=== PATIENT | female | born 1950 | race Caucasian/White ===

== ENCOUNTER 2017-05-17 08:52 | Outpatient (CLI) | payer MEDICARE, OTHER | END 2017-05-17 08:53 | disposition home or self-care (01) | LOC: BICMAMMO 08:52 | PROVIDERS: ATTEND Family Medicine | DX: Z13.820 Encounter for screening for osteoporosis (principal); M81.0 Age-related osteoporosis without current pathological fracture | CPT/HCPCS: 77080 ==

== ENCOUNTER 2017-05-17 09:52 | Outpatient (CLI) | payer MEDICARE, OTHER | END 2017-05-17 09:53 | disposition home or self-care (01) | LOC: BICRAD 09:52 | PROVIDERS: ATTEND Family Medicine | DX: M54.5 Low back pain (principal); N95.9 Unspecified menopausal and perimenopausal disorder; M47.896 Other spondylosis, lumbar region; M43.16 Spondylolisthesis, lumbar region | CPT/HCPCS: 72100 ==

== ENCOUNTER 2017-09-26 11:55 | Outpatient (CLI) | payer MEDICARE, OTHER | END 2017-09-26 11:56 | disposition home or self-care (01) | LOC: BICMAMMO 11:55 | PROVIDERS: ATTEND Family Medicine | DX: Z12.31 Encounter for screening mammogram for malignant neoplasm of breast (principal); M47.895 Other spondylosis, thoracolumbar region; M47.896 Other spondylosis, lumbar region; M48.061 Spinal stenosis, lumbar region without neurogenic claudication; M43.16 Spondylolisthesis, lumbar region; R92.1 Mammographic calcification found on diagnostic imaging of breast; Z80.3 Family history of malignant neoplasm of breast | CPT/HCPCS: 72148; 77063; 77067 ==

== ENCOUNTER 2017-12-06 10:35 | Outpatient (CLI) | payer MEDICARE ==
[2017-12-06 13:06] LABS: Hemoglobin 14.5 g/dL (12.0-16.0); Mean Corpuscular HGB CONC 33.4 g/dL (32.0-36.0); Mean Corpuscular Hemoglobin 30.7 pg (27.0-31.0); Mean Corpuscular Volume 92.2 fL (78.0-98.0); Mean Platelet Volume 7.5 fL (7.4-10.4); Platelet Count 212 thou/uL (130-400); RBC Distribution Width 12.7 % (11.5-14.5); Red Blood Cell (RBC) Count 4.72 mill/uL (4.20-5.40); White Blood Cell (WBC) Count 4.7 thou/uL (4.8-10.8)
[2017-12-06 13:21] LABS: Anion Gap 17 mmol/L (10-20); BUN (Urea Nitrogen) 18 mg/dL (9.8-20.1); Calc. Creatinine Clearance 0 mL/min (70-130); Calcium 9.4 mg/dL (7.8-10.44); Carbon Dioxide 22 mmol/L (23-31); Chloride 104 mmol/L (98-107); Estimated GFR-MDRD 50; Glucose 105 mg/dL (80-115); Potassium 4.4 mmol/L (3.5-5.1); Sodium 139 mmol/L (136-145)
== END 2017-12-06 10:36 | disposition home or self-care (01) ==
LOC: LABBT 10:35
PROVIDERS: ATTEND Neurological Surgery
DX: Z01.818 Encounter for other preprocedural examination (principal); M43.16 Spondylolisthesis, lumbar region
CPT/HCPCS: 80048; 85027; 87081; 93005; 93010

== ENCOUNTER 2017-12-06 11:15 | Inpatient (IN) | payer MEDICARE ==
[2017-12-06 10:54] VITALS: BMI 24.5
[2017-12-18] MEDS ORDERED: Sodium Chloride 0.9% 10 ML ONE (09:01)
[2017-12-18] MEDS ORDERED: CEFAZOLIN/Water 2 GM/20 ML SYRINGE ONE (09:06)
[2017-12-18] MEDS ORDERED: Midazolam HCl 2 mg/2 ml Vial ONE (09:12)
[2017-12-18] MEDS ORDERED: Fentanyl 250 MCG/5 ML VIAL ONE (09:12)
[2017-12-18] MEDS ORDERED: Ondansetron HCl/PF 4 MG/2 ML Vial IVP PRN ×2 (10:34→13:56)
[2017-12-18] MEDS ORDERED: Promethazine HCl 25 MG/ML VIAL SLOW IVP PRN (10:34)
[2017-12-18] MEDS ORDERED: Promethazine HCl 25 MG/ML VIAL IM PRN ×2 (10:34→13:54)
[2017-12-18] MEDS ORDERED: HYDROmorphone 2 MG/ML VIAL SLOW IVP PRN (10:34)
--- NOTE | 2017-12-18 10:45 | OP ---
DATE OF PROCEDURE: 12/18/2017 SURGEON: Tevin Sweeney M.D. BURN OUT TENDER LACE: Heather Kenyon PROCEDURE: L4-5 decompressive laminectomy, posterolateral arthrodesis, pedicle screw instrumentation , demineralized bone matrix, and local morselized autograft L4-5. PROCEDURE IN DETAIL: The patient was brought into the operating room and intubated. She was rolled in prone position on gel-filled chest rolls. The previous incision was reopened and extended superio rly. The L5-S1 level seemed to be fused posteriorly and was quite irregular in shape. We identified the L4-5 level and it was loose as expected, but surprisingly the L3-4 level was also hypermobile. We performed a complete L4-5 decompression, decompressing the neural elements. The dura was extremel y attenuated and arachnoid was visible through the dura and bulging out, but no CSF was witnessed. G elfoam was placed over this at the end of the surgery. After complete decompression had been secured , we placed pedicle screws at right L4, right L5 using lateral fluoroscopic guidance. I attempted to place left-sided pedicle screws, but given the anatomy this seemed quite difficult and given the goo d screws on the right side, we aborted further efforts on the left side. The screws were connected b y rods, secured by nuts which were final tightened. The wound was extensively irrigated, immaculate hemostasis was secured. A combination of demineralized bone matrix and local morselized autograft wa s laid over the left laminar and posterolateral surfaces for the purpose of arthrodesis. Vancomycin powder was applied and the wound was closed in anatomic layers.
[2017-12-18] MEDS ORDERED: Fentanyl 100 MCG/2 ML VIAL ONE (11:18)
[2017-12-18] MEDS ORDERED: HYDROmorphone 2 MG/ML VIAL ONE (11:29)
[2017-12-18] MEDS ORDERED: Promethazine HCl 25 MG/ML VIAL ONE (11:41)
[2017-12-18] MEDS ORDERED: Mag-Al 1200 mg/1200 mg/30 ML UDCUP PO PRN (13:54)
[2017-12-18] MEDS ORDERED: diphenhydrAMINE 50 MG/ML VIAL IVP PRN (13:54)
[2017-12-18] MEDS ORDERED: traMADol HCl 50 MG TAB PO PRN ×2 (13:54)
[2017-12-18] MEDS ORDERED: Milk Of Magnesia 30 ML UDCUP PO PRN (13:54)
[2017-12-18] MEDS ORDERED: Promethazine 25 MG TAB PO PRN (13:54)
[2017-12-18] MEDS ORDERED: HYDROcodone/Acetaminophen 10/325 mg Tablet PO PRN (13:54)
[2017-12-18] MEDS ORDERED: tiZANidine HCl 4 MG TAB PO PRN (13:54)
[2017-12-18] MEDS ORDERED: diphenhydrAMINE 25 MG CAP PO PRN (13:54)
[2017-12-18] MEDS ORDERED: Promethazine HCl 12.5 MG SUPP PR PRN (13:54)
[2017-12-18] MEDS ORDERED: Morphine 4 MG/ML VIAL IV PRN (13:55)
[2017-12-18] MEDS ORDERED: traZODone HCl 50 MG TAB PO PRN (13:58)
[2017-12-18] MEDS ORDERED: IBANDRONATE 150 MG PO SCH (14:00)
[2017-12-18] MEDS ORDERED: Fluticasone Propionate Nasal Spray 16 gm Bottle NASAL PRN (14:01)
[2017-12-18] MEDS: Sodium Chloride 0.9% 1,000 ML IV SCH (14:20)
[2017-12-18] MEDS: CEFAZOLIN/Water 2 GM/20 ML SYRINGE SLOW IVP SCH (16:53)
[2017-12-18] MEDS: HYDROcodone/Acetaminophen 10/325 mg Tablet PO PRN (16:59)
[2017-12-18] MEDS: busPIRone HCl 5 MG TAB PO SCH (20:27)
[2017-12-18] MEDS ORDERED: Atorvastatin Calcium 40 MG TAB PO SCH (21:00)
[2017-12-19] MEDS: CEFAZOLIN/Water 2 GM/20 ML SYRINGE SLOW IVP SCH (00:36)
[2017-12-19] MEDS: Sodium Chloride 0.9% 1,000 ML IV SCH (03:25)
--- NOTE | 2017-12-19 07:05 | DIS ---
HOSPITAL COURSE: The patient is a 67-year-old female status post L4-L5 decompression and fusion. Po stoperatively, her pain was well controlled with p.o. medications, she was tolerating a regular diet, and she was voiding appropriately. She did have some slight drainage from the incision overnight, w hich required a dressing change. I am inspecting the wound this morning and it appears dry without a ny additional issues. The patient is sitting comfortably in the bed in no acute distress. Awake and alert. She has a dry incision, which is intact; 5/5 strength throughout. No focal neurologic deficits. We will plan to dismiss the patient to home later today. I have discussed home care precautions and plan to follow up with the patient in approximately 2 weeks with x-rays. Provided the patient with s cripts for hydrocodone and Zanaflex and Keflex. Please reach out to Neurosurgery for additional ques tions or concerns.
[2017-12-19] MEDS ORDERED: Spironolactone 25 MG TAB PO SCH (08:00)
[2017-12-19 08:38] VITALS: BP 118/70; TEMP 99.2
[2017-12-19] MEDS: busPIRone HCl 5 MG TAB PO SCH (08:41)
[2017-12-19] MEDS ORDERED: Multivit, Therapeutic 1 TAB PO SCH (09:00)
[2017-12-19] MEDS: HYDROcodone/Acetaminophen 10/325 mg Tablet PO PRN (10:06)
== END 2017-12-19 10:44 | disposition home or self-care (01) | DRG 460 ==
LOC: SURG A 12-18 06:46
PROVIDERS: ADMIT Neurological Surgery; ATTEND Neurological Surgery
PROC: 0SG0071 Fusion of Lumbar Vertebral Joint with Autologous Tissue Substitute, Posterior Approach, Posterior Column, Open Approach (ICD-10-PCS; principal; 2017-12-18)
PROC: 01NB0ZZ Release Lumbar Nerve, Open Approach (ICD-10-PCS; 2017-12-18)
DX: M54.16 Radiculopathy, lumbar region (principal); Z86.718 Personal history of other venous thrombosis and embolism; I10 Essential (primary) hypertension; E78.5 Hyperlipidemia, unspecified; F41.9 Anxiety disorder, unspecified
CPT/HCPCS: 76001; A4216; C1713; C1768; G8978-GP-CM; G8979-GP-CM; G8980-GP-CM; J1170; J2250; J2270; J2550; J3010; J3370; J3490

== ENCOUNTER 2017-12-28 09:45 | Outpatient (CLI) | payer MEDICARE | END 2017-12-28 09:46 | disposition home or self-care (01) | LOC: BICRAD 09:45 | PROVIDERS: ATTEND Physician Assistant | DX: M54.5 Low back pain (principal); M47.896 Other spondylosis, lumbar region; M43.16 Spondylolisthesis, lumbar region; Z98.1 Arthrodesis status | CPT/HCPCS: 72100 ==

== ENCOUNTER 2018-02-20 13:32 | Outpatient (CLI) | payer MEDICARE ==
--- NOTE | 2018-02-20 15:06 | RAD ---
LUMBAR SPINE 2 VIEWS: HISTORY: A 67-year-old female with followup low back surgery, M51.36. FINDINGS: Status post laminectomy at L4 and L5 with right-sided pedicle screws involving L4 and L5 with mild ov erall stable-appearing anterolisthesis of L4 on L5 with disk space narrowing. There is also narrowin g at L3-L4. There is some generalized facet arthrosis. Levoscoliosis. IVC filter overlying the lum bar spine. IMPRESSION: Right-sided pedicle screws at L4-L5 with associated laminectomy and stable anterolisthesis of L4 on L 5. Levoscoliosis. Inferior vena cava filter overlying the spine. POS: [facility]
== END 2018-02-20 13:33 | disposition home or self-care (01) ==
LOC: TBSIIMAG 13:32
PROVIDERS: ATTEND Neurological Surgery
DX: M51.36 Other intervertebral disc degeneration, lumbar region (principal); M41.9 Scoliosis, unspecified; M43.16 Spondylolisthesis, lumbar region; Z98.890 Other specified postprocedural states
CPT/HCPCS: 72100

== ENCOUNTER 2018-05-04 11:20 | Outpatient (CLI) | payer MEDICARE ==
--- NOTE | 2018-05-04 12:32 | RAD ---
TWO VIEWS LEFT HIP: Comparison: None. History: Left hip pain. FINDINGS: Two views of the left hip shows no evidence of acute fracture or dislocation. No degenerative changes are seen. IMPRESSION: Unremarkable exam. POS: [facility]
--- NOTE | 2018-05-04 12:33 | RAD ---
THREE VIEWS RIGHT SHOULDER: Comparison: None. History: Right shoulder pain. FINDINGS: Three views of the right shoulder shows no evidence of acute fracture or dislocation. The visualized right thorax is unremarkable. No significant degenerative changes are present. IMPRESSION: Unremarkable exam. POS: [facility]
== END 2018-05-04 11:21 | disposition home or self-care (01) ==
LOC: BICRAD 11:20
PROVIDERS: ATTEND Family Medicine
DX: M25.511 Pain in right shoulder (principal); M25.552 Pain in left hip

== ENCOUNTER 2018-05-22 12:46 | Outpatient (CLI) | payer MEDICARE ==
--- NOTE | 2018-05-22 14:38 | RAD ---
LUMBAR SPINE SERIES TWO VIEWS: History: Follow up surgery. Comparison: 02-20-18 FINDINGS: The bones appear demineralized. Vertebral bodies are normal in height. There are right unilateral ped icle screws again noted at L4-5 with spondylolisthesis, stable. Disc narrowing at L5-S1 and L3-4 are again seen. An IVC filter is present. IMPRESSION: Stable exam. POS: [facility]
== END 2018-05-22 12:47 | disposition home or self-care (01) ==
LOC: TBSIIMAG 12:46
PROVIDERS: ATTEND Neurological Surgery
DX: M43.16 Spondylolisthesis, lumbar region (principal)
CPT/HCPCS: 72100

== ENCOUNTER 2018-07-06 10:06 | Outpatient (CLI) | payer MEDICARE ==
[2018-07-06] MEDS ORDERED: Gadobenate Dimeglumine 529 MG/1 ML (20ML VIAL) ONE (12:48)
--- NOTE | 2018-07-06 12:57 | MRI ---
RIGHT SHOULDER MRI WITHOUT IV CONTRAST: HISTORY: M75.101, tear right rotator cuff with right shoulder pain and decreasing range of motion for 3 months . FINDINGS: Multiplanar, multisequence MRI examination of the right shoulder is performed. AC joint arthrosis ch anges are noted with some fairly marked downsloping of the lateral acromion. There is an irregular c omplete retracted tear of the supraspinatus tendon with retraction back to a level between the taty l dome and glenoid. There is also incomplete tear of the infraspinatus tendon with some considerable delamination. There appears to be a split-type appearance to the biceps tendon as it exits the occi pital groove with some associated tendinopathy, evidence for a split-type tear. Considerable thicken ing and increased signal of the subscapularis tendon, evidence for interstitial tearing and tendinopa thy. Moderate to severe muscle volume loss of the supraspinatus and infraspinatus muscles. Poorly d efined abnormal-appearing superior labrum, evidence for a degenerative-type SLAP tear. IMPRESSION: Extensive rotator cuff tears as above. Moderate to severe muscle volume loss of the supraspinatus an d infraspinatus muscles. Poorly defined degenerated-appearing superior labrum anterior to posterior tear. POS: [facility]
--- NOTE | 2018-07-06 13:59 | MRI ---
MRI LUMBAR SPINE WITH AND WITHOUT CONTRAST: DATE: 07/06/18 HISTORY: 67-year-old female with M54.16 lumbar radiculopathy. Low back pain radiating to left lower extremity. COMPARISON: 12/28/17. TECHNIQUE: Multiple sequences obtained in axial and sagittal planes, pre and post IV injection of gadolinium-bas ed contrast agent: 12 mL MultiHance. FINDINGS: There is a complex, multilobulated and multiseptated T2 hyperintense and T1 hypointense mass in the l iver, close to the gallbladder fossa. This was present on previous MRI of 12/28/17. Uncertain whether or not there has been growth. The very irregular margins would be an unusual feature for a hepatic cyst. This is incompletely evaluated. Uncertain whether or not there are small areas of mildly enhanc ing tissues (vs. artifact). Vertebral body heights are maintained. There is a levoscoliosis with apex of curvature at approximate ly L3. Moderate to severe disc space narrowing at L4-5. High grade disc space narrowing at the right, concave side of the curvature at L3-4. L5-S1 disc space is slightly narrow, due to slight hypoplasia . No acquired severe disc space narrowing at any other level. There are diffuse disc bulges or disc-o steophytic bar complexes, indenting the ventral aspect of the thecal sac at every level except L5-S1. Mild bone marrow edema at the left pedicle and left posterior elements of L4. No major bone marrow s ignal abnormality elsewhere. T11-12: No high grade central stenosis or high grade neural foraminal stenosis. T12-L1: No high grade central stenosis or high grade neural foraminal stenosis. L1-2: Conus medullaris terminates at this level. No central or high grade neural foraminal stenosis. Slight degenerative retrolisthesis of L1 on L2. No significant interval change. L2-3: No central stenosis or high grade neural foraminal stenosis. L3-4: There is a right L4 pedicle screw. Moderate ligamentum flavum thickening. Severe bilateral fac et DJD with bilateral facet joint effusions. Moderate to severe bilateral neural foraminal stenosis h as probably not significantly changed. Degenerative retrolisthesis of L3 on L4 is similar to the prev ious MRI. The diffuse disc bulge is similar. Mild to moderate degree of central spinal canal stenosis . Probably no major interval change overall. L4-5: Right L5 pedicle screw traverses the right lateral recess of the spinal canal, medial to the r ight pedicle. Other than the right lateral recess, no significant central spinal canal stenosis. Grad e I anterolisthesis of L4 on L5 is unchanged. Diffuse disc bulge. Mild to moderate right neural edda inal stenosis. Moderate left neural foraminal stenosis. Severe bilateral facet DJD. Previously, there was high grade central spinal canal stenosis at this level, but that has been relieved by an apparen tly new midline laminectomy. The remaining nerve roots within the thecal sac are asymmetrically perip herally displaced on the right and left, consistent with chronic arachnoiditis. L5-S1: Spinal canal and thecal sac caliber are generous. The previously demonstrated right-sided int rathecal mass is no longer present. It may have been a hematoma. The sacral nerve roots within the th ecal sac are severely peripherally displaced consistent with chronic arachnoiditis. Posterior element bone graft fusion with successful ankylosis across midline. No central stenosis and no neural forami nal stenosis. IMPRESSION: 1. Complex cystic mass in the liver. Recommend further evaluation with multiphase CT of abdomen with and without contrast, liver mass protocol. 2. There has been interval relief of the previously demonstrated high grade central spinal canal clary nosis at L4-5 by a new midline laminectomy. 3. Unilateral right pedicle screws at L4 and L5. The right L5 pedicle screw traverses the right late ral recess of the spinal canal, medial to the pedicle. 4. Evidence for chronic arachnoiditis at the lower lumbosacral spine. 5. Mild to moderate central spinal canal stenosis at L3-4. 6. No severe central spinal canal stenosis at any level. JULIET R POS: [facility]
--- NOTE | 2018-07-06 14:09 | RAD ---
LUMBAR SPINE THREE VIEWS: HISTORY: Radiculopathy, lumbar region. COMPARISON: 05/22/2018 FINDINGS: Postop changes of right-sided posterior spinal fusion with pedicle screws at the L4-L5 level are agai n seen in good position and alignment. Grade 1 anterolisthesis of L4 over L5 is unchanged. No compr ession fracture is identified. Metallic hardware is intact. An IVC filter is again seen. IMPRESSION: Stable examination. POS: [facility]
== END 2018-07-06 10:07 | disposition home or self-care (01) ==
LOC: BICMRI 10:06
PROVIDERS: ATTEND Orthopaedic Surgery
DX: M54.16 Radiculopathy, lumbar region (principal); M75.101 Unspecified rotator cuff tear or rupture of right shoulder, not specified as traumatic; R16.0 Hepatomegaly, not elsewhere classified; M48.061 Spinal stenosis, lumbar region without neurogenic claudication; G03.1 Chronic meningitis; Z98.890 Other specified postprocedural states
CPT/HCPCS: 72100; 72158; 82565; A9577

== ENCOUNTER 2018-08-01 10:38 | Outpatient (CLI) | payer MEDICARE ==
--- NOTE | 2018-08-01 11:39 | CT ---
EXAM: CT Abdomen W WO Con PROVIDED CLINICAL HISTORY: Liver mass COMPARISON: MRI 07/06/2018 FINDINGS: The visualized lung bases are free of significant opacity. Multiple hepatic cysts are seen. The hepatic cyst in the right hepatic lobe near the gallbladder jennifer a demonstrates somewhat scalloped margins but appears otherwise normal. This correlates to the MR harsha paniagua. No evidence for a solid mass or concerning liver lesion. The solid abdominal organs demonstrate an otherwise unremarkable CT appearance. Changes of prior chol ecystectomy are seen. IVC filter is noted. No bowel dilatation, inflammatory fat stranding, free fluid or lymph node enlargement apparent. The osseous structures demonstrate no concerning lytic or blastic lesions. Postoperative changes are seen involving the lower lumbar spine. IMPRESSION: Hepatic cysts are seen, one of which corresponds to the MRI finding. No concerning lesions are eviden t.
== END 2018-08-01 10:39 | disposition home or self-care (01) ==
LOC: BICCT 10:38
PROVIDERS: ATTEND Family Medicine
DX: K76.89 Other specified diseases of liver (principal)
CPT/HCPCS: 74170; 82565

== ENCOUNTER 2019-01-10 15:13 | Outpatient (CLI) | payer MEDICARE ==
--- NOTE | 2019-01-10 15:35 | RAD ---
LUMBAR SPINE SERIES TWO VIEWS: 01/10/19 HISTORY: Back pain and radiculopathy. COMPARISON: 07/06/18 study. There is scoliotic change, convexed to the left. An IVC filter is again noted. Right unilateral pedic le screws at L. Right unilateral pedicle screws at L5-S1 are seen. Spondylolisthesis is again noted a nd stable. IMPRESSION: Stable exam. POS: [facility]
== END 2019-01-10 15:14 | disposition home or self-care (01) ==
LOC: TBSIIMAG 15:13
PROVIDERS: ATTEND Neurological Surgery
DX: M54.16 Radiculopathy, lumbar region (principal)
CPT/HCPCS: 72100

== ENCOUNTER 2019-01-30 07:05 | Day surgery (SDC) | payer MEDICARE ==
[2019-01-29 13:21] VITALS: BMI 25.0
[~2019-01-30 07:05] MED LIST: FLU VACC TS2019-20(65YR UP)/PF 180 MCG/0.5 ML SYRINGE IM ONE
--- NOTE | 2019-01-30 08:56 | RAD ---
Myelogram of Lumbar spine CLINICAL HISTORY: Pain, Lumbar radiculopathy PROCEDURE: Informed consent was obtained. [employer] imaging was performed. Patient was placed in a prone position and the skin of the low back was prepped and draped in a standard sterile fashion. Topical anesthesia was achieved with buffered 1% lidocaine. 22-gauge spinal needle was then advanced uneventf ully into the thecal sac from a posterior para midline approach at the left tL3-4level. 9 cc of radiopaque contrast was instilled under low pressure into the thecal sac, upon return of clear colorl ess CSF the needle hub. Imaging was stored for documentation. Needle was removed. Patient tolerated the procedure well, without complication evident. Patient was then transferred to CT to undergo subsequent CT myelogram imaging. Reference separate joselyn cruz(s) for additional details. FINDINGS: Intraoperative imaging reveals a needle overlying the lumbar spinal canal, with subsequent instillation of radiopaque contrast within the thecal sac. Fluoroscopy data: 0.1minutes, 11mcg/sq m IMPRESSION: Technically successful myelogram, as above.
[2019-01-30] MEDS ORDERED: Iopamidol-M 200 41% 20 ML VIAL ONE (10:16)
--- NOTE | 2019-01-30 10:18 | CT ---
POST MYELOGRAM LUMBAR SPINE CT: HISTORY: Lumbar radiculopathy. Previous lumbar fusion. COMPARISON: None. CORRELATION: Abdomen CT of 08/01/2018. FINDINGS: Re-demonstration of hypodensities in the hepatic parenchyma, likely due to cysts. Symmetric attenuati on of the visualized solid organs. No retroperitoneal mass, lymphadenopathy or hematoma. Note is made of an IVC filter. The visualized alimentary canal is unremarkable. There is mild leftward curvature of the lumbar spine. There is diffuse bony demineralization. Lumbar spine vertebral body height is maintained. No fracture. Unilateral right-sided transpedicular screw at L4 and L5. No perihardware lucency. There are bilatera l pars defects at L4. Spondylolisthesis: 6.7 mm of anterolisthesis of L4 upon L5 3.3 mm of retrolisthesis of L1 upon L2 The conus medullaris terminates at the mid L1 level. Right L4 transpedicular screw is appropriately positioned. The right L5 transpedicular screw traverse s the central spinal canal and is noted in the right subarticular zone. This screw appears to be adjacent to the traversing right S1 nerve root. T10-T11: Vacuum disc phenomenon. No high grade central canal stenosis. Moderate to severe bilateral neural foraminal narrowing. T11-T12: Small left and right paracentral disc bulge. No significant central canal stenosis. Moderate bilateral neural foraminal narrowing. T12-L1: Vacuum disc phenomenon with mild loss of disc space height.. Broad-based disc bulge results i n mild central canal stenosis. Mild to moderate bilateral neural foraminal narrowing. L1-L2: Broad-based disc bulge with a small right paracentral component. Mild central canal stenosis. Moderate bilateral foraminal narrowing. L2-L3: Broad-based disc bulge, mild ligament flavum thickening and facet hypertrophy result in mild c entral canal stenosis. Mild to moderate right and mild left neural foraminal narrowing. L3-L4: Vacuum disc phenomenon. Broad-based disc bulge and posterior element hypertrophy result in sev ere central canal stenosis. There is asymmetric soft tissue density in the left subarticular zone. There is presumed mass effect and obscuration of the traversing left L4 nerve root. Mild to moderate right and moderate to severe left neural foraminal narrowing. L4-L5: Vacuum disc phenomenon. Broad-based disc bulge. Posterior laminectomy defect. Based on the axi al images, there does not appear to be high grade central canal stenosis. Mild to moderate bilateral neural foraminal narrowing. L5-S1: No significant central canal stenosis or significant neural foraminal narrowing. Posterior westbrook inectomy defect with bone graft material is identified. IMPRESSION: 1. Unilateral right sided transpedicular screw at L4 and L5. The right L5 transpedicular screw enters the central spinal canal and is noted in the right subareolar zone. The screw is adjacent to the traversing right S1 nerve root. 2. Severe central canal stenosis at L3-L4. Limited and incomplete evaluation. Correlation made with a n MRI from 07/06/2018 suggests progression of central spinal canal stenosis. Consider repeat MRI. 3. Varying degrees of neural foraminal narrowing and central canal stenosis as detailed above. 4. Spondylolisthesis as detailed above. Transcribed Date/Time: 01/30/2019 11:01 AM
== END 2019-01-30 09:40 | disposition home or self-care (01) ==
LOC: RAD 07:05
PROVIDERS: ATTEND Neurological Surgery
PROC: B01B1ZZ Fluoroscopy of Spinal Cord using Low Osmolar Contrast (ICD-10-PCS; principal; 2019-01-30)
DX: M54.16 Radiculopathy, lumbar region (principal); M48.061 Spinal stenosis, lumbar region without neurogenic claudication; I10 Essential (primary) hypertension; E78.5 Hyperlipidemia, unspecified; E11.43 Type 2 diabetes mellitus with diabetic autonomic (poly)neuropathy; K31.84 Gastroparesis; Z79.01 Long term (current) use of anticoagulants; Z79.83 Long term (current) use of bisphosphonates; Z79.899 Other long term (current) drug therapy; Z88.5 Allergy status to narcotic agent; Z98.1 Arthrodesis status
CPT/HCPCS: 62304; 72132; Q9966

== ENCOUNTER 2019-03-06 05:39 | Inpatient (IN) | payer MEDICARE ==
[2019-03-05 12:40] VITALS: BMI 25.0
[2019-03-06] MEDS ORDERED: Sodium Chloride 0.9% 10 ML ONE (06:30)
[2019-03-06 06:44] LABS: #Eosinphils 0.1 thou/uL (0.0-0.7); #Lymphocytes 1.8 thou/uL (1.20-3.40); #Monocytes 0.3 thou/uL (0.11-0.59); #Neutrophils 2.2 thou/uL (1.40-6.50); %Basophils 0.3 % (0.0-1.0); %Eosinophils 1.6 % (0.0-10.0); %Lymphocytes 41.2 % (21.0-51.0); %Monocytes 6.6 % (0.0-10.0); %Neutrophils 50.4 % (42.0-75.0); Hemoglobin 14.1 g/dL (12.0-16.0); Mean Corpuscular HGB CONC 33.2 g/dL (32.0-36.0); Mean Corpuscular Volume 93.4 fL (78.0-98.0); Mean Platelet Volume 7.3 fL (7.4-10.4); Platelet Count 222 thou/uL (130-400); RBC Distribution Width 12.6 % (11.5-14.5); Red Blood Cell (RBC) Count 4.54 mill/uL (4.20-5.40); White Blood Cell (WBC) Count 4.4 thou/uL (4.8-10.8)
[2019-03-06 07:02] LABS: Anion Gap 11 mmol/L (10-20); BUN (Urea Nitrogen) 23 mg/dL (9.8-20.1); Calc. Creatinine Clearance 41 mL/min (70-130); Calcium 9.2 mg/dL (7.8-10.44); Carbon Dioxide 28 mmol/L (23-31); Chloride 105 mmol/L (98-107); Estimated GFR-MDRD 51; Glucose 99 mg/dL (80-115); Potassium 4.2 mmol/L (3.5-5.1); Sodium 140 mmol/L (136-145)
[2019-03-06] MEDS ORDERED: Fentanyl 250 MCG/5 ML VIAL ONE (07:02)
[2019-03-06 07:40] LABS: INR-International Normal Ratio 1.1; Prothrombin Time 13.9 SEC (12.0-14.7)
--- NOTE | 2019-03-06 09:31 | OP ---
DATE OF PROCEDURE: 03/06/2019 J[employer] FRONT END WEB DEVELOPER: Lashay Wu PA-C PROCEDURES PERFORMED: Re-exploration of spinal fusion, L4-L5; removal of hardware, L4-L5; L3-L4 laminectomy; posterolateral arthrodesis; pedicle screw instrumentation, L3 through L5; posterolateral arthrodesis, L3 through L5; and demineralized bone matrix and local morselized autograft. DESCRIPTION OF PROCEDURE: The patient was brought to the operating room and intubated. She was rolled in a prone position on gel-filled chest rolls. An incision was made exposing L3 through L5 and the level was confirmed by x-ray. We performed an L3-L4 laminectomy and identified a huge synovial cyst emanating from the left L3-L4 region. A complete decompression L3-L4 was achieved. The synovial cyst was removed. We next placed a pedicle screw at right L3 using lateral fluoroscopic guidance. We also replaced the right L5 pedicle screw for more lateral trajectory. As per her previous surgery, her anatomy was extremely difficult and screw placement was challenging. The ambrocio was then secured between the screws, connected by nuts, which were final tightened. The wound was then extensively irrigated. MAC hemostasis was secured. A combination of demineralized bone matrix and local morselized autograft were laid over the lamina and posterolateral surfaces for the purpose of arthrodesis. Vancomycin powder was applied and the wound was closed in anatomic layers. Job ID: [id number]
[2019-03-06] MEDS ORDERED: Fentanyl 100 MCG/2 ML VIAL ONE ×3 (09:33→10:12)
[2019-03-06] MEDS ORDERED: Promethazine HCl 25 MG/ML VIAL SLOW IVP PRN (09:34)
[2019-03-06] MEDS ORDERED: Promethazine HCl 25 MG/ML VIAL IM PRN (09:34)
[2019-03-06] MEDS ORDERED: Ondansetron HCl/PF 4 MG/2 ML Vial IVP PRN (09:34)
[2019-03-06] MEDS ORDERED: Milk Of Magnesia 30 ML UDCUP PO PRN (09:37)
[2019-03-06] MEDS ORDERED: Promethazine HCl 12.5 MG SUPP PR PRN (09:37)
[2019-03-06] MEDS ORDERED: Promethazine 25 MG TAB PO PRN (09:37)
[2019-03-06] MEDS ORDERED: Mag-Al 1200 mg/1200 mg/30 ML UDCUP PO PRN (09:37)
[2019-03-06] MEDS ORDERED: HYDROcodone/Acetaminophen 10/325 mg Tablet PO PRN (09:37)
[2019-03-06] MEDS ORDERED: diphenhydrAMINE 25 MG CAP PO PRN (09:37)
[2019-03-06] MEDS ORDERED: traMADol HCl 50 MG TAB PO PRN ×2 (09:37)
[2019-03-06] MEDS ORDERED: Morphine 4 MG/ML VIAL SLOW IVP PRN (09:37)
[2019-03-06] MEDS ORDERED: tiZANidine HCl 4 MG TAB PO PRN ×2 (09:37→16:29)
[2019-03-06] MEDS ORDERED: diphenhydrAMINE 50 MG/ML VIAL IVP PRN (09:37)
[2019-03-06] MEDS ORDERED: Morphine 2 MG/ML SYRINGE SLOW IVP PRN (09:39)
[2019-03-06] MEDS ORDERED: Ondansetron PF 4 MG/2 ML Vial SLOW IVP PRN (09:40)
[2019-03-06] MEDS ORDERED: Glycopyrrolate 0.2 MG/ML 5 ML SYRINGE ONE (10:19)
[2019-03-06] MEDS ORDERED: PHENYLEPHRINE-NS 100 MCG/ML 10 ML SYRINGE ONE (10:19)
[2019-03-06] MEDS ORDERED: Dexamethasone 20 MG/5 ML VIAL ONE (10:19)
[2019-03-06] MEDS ORDERED: Esmolol 100 MG/10 ML VIAL ONE (10:19)
[2019-03-06] MEDS ORDERED: Ondansetron PF 4 MG/2 ML Vial ONE (10:19)
[2019-03-06] MEDS ORDERED: Lidocaine 1% PF 5 ML VIAL ONE (10:19)
[2019-03-06] MEDS ORDERED: PROPOFOL 200 MG/20 ML VIAL ONE (10:19)
[2019-03-06] MEDS ORDERED: FLU VACC TS2019-20(65YR UP)/PF 180 MCG/0.5 ML SYRINGE IM ONE (14:00)
[2019-03-06] MEDS: CEFAZOLIN 2 GM in Premix Bag 1 BAG IVPB SCH ×2 (14:42→21:19)
[2019-03-06] MEDS: Sodium Chloride 0.9% 1,000 ML IV SCH ×2 (14:45→23:12)
[2019-03-06] MEDS ORDERED: Acetaminophen 325 MG TAB PO PRN (16:21)
[2019-03-06] MEDS ORDERED: Ondansetron ODT 4 MG TAB PO PRN (16:21)
[2019-03-06] MEDS ORDERED: Acetaminophen 650 MG Suppository PR PRN (16:21)
[2019-03-06] MEDS ORDERED: Dicyclomine 10 MG CAP PO PRN (16:30)
[2019-03-06] MEDS ORDERED: Fluticasone Propionate Nasal Spray 16 gm Bottle NASAL PRN (16:30)
[2019-03-06] MEDS ORDERED: Sodium Chloride 0.9% 1,000 ML IV SCH (16:30)
[2019-03-06] MEDS ORDERED: HumaLOG 300 UNITS/3 ML VIAL SC PRN ×2 (16:33)
[2019-03-06] MEDS ORDERED: Dextrose 5% in Water 1,000 ML IV PRN (16:33)
[2019-03-06] MEDS ORDERED: Dextrose 50% Abboject 50 ML SYRINGE SLOW IVP PRN (16:33)
--- NOTE | 2019-03-06 17:14 | CON ---
DATE OF CONSULTATION: 03/06/19 PRIMARY CARE PHYSICIAN: Dr. Sofia Soares. REASON FOR CONSULTATION: Medical management. REFERRING CLINICIAN: Lashay Wu PA-C CHIEF COMPLAINT: Nausea with vomiting. HISTORY OF PRESENT ILLNESS: Ms. Springer is a pleasant 68-year-old woman who is status post reexploration of spinal fusion, L4-L5 with removal of hardware and laminectomy of L3-L4. The patient had her surgery earlier today and states that her pain is well controlled. She reports having a mild headache. She has not had anything to eat yet and states she does feel hungry. She recently just had her pad changed and states after being moved about, she experienced some nausea and one episode of vomiting. She was given antiemetics and her symptoms resolved, but she continues with a mild 4/10 frontal headache. The patient feels this is due to not eating. Denies having any associated vision changes. She is otherwise feeling well without any major complaints. Denies any chest pain, palpitations, or shortness of breath. Denies any abdominal pain or cramping. No dizziness. REVIEW OF SYSTEMS: All other review of systems are negative. PAST MEDICAL HISTORY: 1. Diabetes mellitus type 2. 2. History of DVTs. 3. Hyperlipidemia. 4. Hypertension. 5. Gastroparesis. 6. Hiatal hernia. 7. Chronic back pain. PAST SURGICAL HISTORY: 1. Appendectomy. 2. Cholecystectomy. 3. L4-L5 decompression and fusion in November 2017. 4. Shoulder surgery. 5. Hysterectomy. 6. Hiatal hernia repair. 7. More recently spinal fusion L4-L5 with removal of hardware and laminectomy of L3-L4. SOCIAL HISTORY: The patient denies any tobacco use, alcohol consumption, or illicit drug use. FAMILY HISTORY: She reports a family history of DVTs. ALLERGIES: CODEINE. CURRENT MEDICATIONS: 1. Apixaban. 2. Lipitor. 3. Buspirone HCL. 4. Vitamin D3. 5. Diclofenac. 6. Bentyl. 7. Fluticasone. 8. Hydrocodone. 9. Boniva. 10. Lidoderm patch. 11. Multivitamins. 12. Protonix. 13. Spironolactone. 14. Zanaflex. PHYSICAL EXAMINATION: GENERAL: The patient appears thin, well developed, and in no acute distress. VITAL SIGNS: Temperature 97.6, pulse 67, respirations 16, O2 saturation 98% on 2 L per nasal cannula, blood pressure 144/71. HEENT: Normocephalic and atraumatic. Pupils are equal, round, and reactive to light. Sclerae without icterus. Oropharynx is clear. NECK: Supple. LUNGS: Clear to auscultation bilaterally without wheezes, rales, or rhonchi. CARDIAC: Regular rate and rhythm without audible murmurs, rubs, or gallops. ABDOMEN: Soft, nontender, nondistended. Normoactive bowel sounds present. EXTREMITIES: No cyanosis, clubbing, or edema. NEUROLOGIC: Alert and oriented x3. SKIN: Without rash or jaundice. LABORATORY DATA: White count 4.4, hemoglobin 14.1, hematocrit 42.4, platelets 222, neutrophils 50.4%. Sodium 140, potassium 4.2, chloride 105, BUN 23, creatinine 1.25, GFR 51, glucose 99, calcium 9.2. IMAGING DATA: None. IMPRESSION AND PLAN: Ms. Springer is a pleasant 68-year-old woman who has been referred for medical management of the following. 1. Hypertension. Reconcile home medications and monitor blood pressure. 2. Hyperlipidemia. Resume home medication. 3. Type 2 diabetes mellitus. Monitor glucose and initiate insulin sliding scale. 4. Acute kidney injury. The patient with a creatinine of 1.25 compared to 0.82 at baseline. We will give IV fluids and monitor renal function. 5. Gastrointestinal prophylaxis. We will resume her home dose of pantoprazole. 6. Deep venous thrombosis prophylaxis with mechanical SCDs. She is on anticoagulation at baseline due to history of DVTs, but this is being held given recent surgery. 7. Code status full. Surrogate decision maker is her daughter, Ninoska Dill. The patient's case discussed with attending who agrees with plan of care as described above. Thank you for this consultation. We will continue to follow the patient with you. Job ID: [id number] [facility]
[2019-03-06] MEDS: HYDROcodone/Acetaminophen 10/325 mg Tablet PO PRN (20:32)
[2019-03-06] MEDS: busPIRone HCl 10 MG TAB PO SCH (20:34)
[2019-03-06] MEDS: Atorvastatin Calcium 40 MG TAB PO SCH (20:34)
[2019-03-06] MEDS: Promethazine HCl 25 MG/ML VIAL IM PRN (21:15)
[2019-03-07] MEDS: CEFAZOLIN 2 GM in Premix Bag 1 BAG IVPB SCH (05:32)
[2019-03-07] MEDS: HYDROcodone/Acetaminophen 10/325 mg Tablet PO PRN ×4 (05:35→23:48)
[2019-03-07 06:20] LABS: #Lymphocytes 1.6 thou/uL (1.20-3.40); #Monocytes 0.3 thou/uL (0.11-0.59); #Neutrophils 6.8 thou/uL (1.40-6.50); %Basophils 0.6 % (0.0-1.0); %Eosinophils 0.2 % (0.0-10.0); %Lymphocytes 17.8 % (21.0-51.0); %Monocytes 3.7 % (0.0-10.0); %Neutrophils 77.7 % (42.0-75.0); Hemoglobin 12.7 g/dL (12.0-16.0); Mean Corpuscular HGB CONC 33.2 g/dL (32.0-36.0); Mean Corpuscular Hemoglobin 30.8 pg (27.0-31.0); Mean Corpuscular Volume 92.7 fL (78.0-98.0); Mean Platelet Volume 7.3 fL (7.4-10.4); Platelet Count 201 thou/uL (130-400); RBC Distribution Width 12.6 % (11.5-14.5); Red Blood Cell (RBC) Count 4.11 mill/uL (4.20-5.40); White Blood Cell (WBC) Count 8.7 thou/uL (4.8-10.8)
[2019-03-07 06:39] LABS: Anion Gap 12 mmol/L (10-20); BUN (Urea Nitrogen) 16 mg/dL (9.8-20.1); Calc. Creatinine Clearance 46 mL/min (70-130); Calcium 8.2 mg/dL (7.8-10.44); Carbon Dioxide 21 mmol/L (23-31); Chloride 108 mmol/L (98-107); Estimated GFR-MDRD 58; Glucose 136 mg/dL (80-115); Potassium 4.2 mmol/L (3.5-5.1); Sodium 137 mmol/L (136-145)
[2019-03-07] MEDS: Multivit, Therapeutic 1 TAB PO SCH (08:53)
[2019-03-07] MEDS: busPIRone HCl 10 MG TAB PO SCH ×2 (08:53→20:27)
[2019-03-07] MEDS: Spironolactone 25 MG TAB PO SCH (08:53)
[2019-03-07] MEDS: Cephalexin 250 MG CAP PO SCH ×4 (08:53→20:27)
--- NOTE | 2019-03-07 10:18 | PRG ---
DATE OF SERVICE: 03/07/2019 SUBJECTIVE: The patient is postoperative day #1, status post removal of hardware and extension of fusion to L3-L4. Following the surgery, the patient was transitioned to the Med/Surg floor, where her pain has been well controlled with p.o. medications, she is tolerating a regular diet, and she is voiding appropriately. The patient has had significant improvement in her left leg pain. She is ambulating short distances in her room back and forth to the bathroom. She did have some initial nausea and vomiting following the surgery, but this has since resolved and she is now tolerating her diet without any difficulties. She had 85 mL out from the JOSE MIGUEL overnight. OBJECTIVE: GENERAL: On exam, this morning, the patient is awake, alert, in no acute distress. EXTREMITIES: She has free active range of motion of all extremities. She is slightly weak in the left proximal leg 4+/5. Negative straight leg raise. No incisional issues. There is a small amount of dark red blood in the JOSE MIGUEL drain. The patient is doing very well postoperatively and prefers to go home with home health at some point rather than inpatient rehab. I will discuss with Case Management about arranging home health at discharge. We will remove her JOSE MIGUEL drain and discontinue her IV antibiotics today. We will continue to mobilize her slowly and have her work with PT. I anticipate possibly ready to go home tomorrow. Job ID: [id number]
[2019-03-07] MEDS: Sodium Chloride 0.9% 1,000 ML IV SCH (11:22)
--- NOTE | 2019-03-07 11:28 | PDOC.HOSPP ---
- Subjective Encounter Date: 03/07/19 Encounter Time: 08:00 Subjective: Pt seen for followup re; hypertension. Feels better, no complaints. - Objective Vital Signs & Weight: Vital Signs (12 hours) Temp Pulse Resp BP Pulse Ox 03/07/19 07:41 98.1 F 62 16 132/59 L 96 03/07/19 07:40 96 03/07/19 04:01 98.2 F 63 16 143/63 H 97 03/06/19 23:39 98.3 F 59 L 16 118/65 95 Weight Admit Weight 137 lb Weight 137 lb I&O: 03/06/19 03/07/19 03/08/19 06:59 06:59 06:59 Intake Total 1452 237 Output Total 315 20 Balance 1137 217 Result Diagrams: 03/07/19 06:08 03/07/19 06:08 Additional Labs: Accuchecks 03/07/19 03/06/19 03/06/19 05:31 20:17 17:05 POC Glucose 90 177 H 110 labs and MARs reviewed by hi Hospitalist ROS - Review of Systems Cardiovascular: denies: chest pain, palpitations, orthopnea, paroxysmal noc. dyspnea, edema, light headedness Gastrointestinal: denies: nausea, vomiting, abdominal pain, diarrhea, constipation, melena, hematochezia - Medication Medications: Active Medications Generic Name Dose Route Start Last Admin Trade Name Freq PRN Reason Stop Dose Admin Hydrocodone Bitart/Acetaminophen 1 tab 03/06/19 09:37 03/07/19 09:37 [place] 10/325 PO 1 tab Q4H PRN Administration PAIN (1-3) Atorvastatin Calcium 40 mg 03/06/19 21:00 03/06/19 20:34 Lipitor PO 40 mg HS ARTHUR Administration Buspirone HCl 15 mg 03/06/19 21:00 03/07/19 08:53 Buspar PO 15 mg BID ARTHUR Administration Cephalexin 500 mg 03/07/19 09:00 03/07/19 08:53 Keflex PO 500 mg QID ARTHUR Administration Cholecalciferol 5,000 units 03/07/19 09:00 03/07/19 08:53 Vitamin D3 PO 5,000 units DAILY ARTHUR Administration Sodium Chloride 1,000 mls @ 75 mls/hr 03/06/19 09:37 03/07/19 11:22 Normal Saline 0.9% IV Not Given .[id number] ARTHUR Morphine Sulfate 2 mg 03/06/19 09:39 03/06/19 16:06 Morphine SLOW IVP 2 mg Q1H PRN Administration .MODERATE BREAKTHROUGH PAIN Morphine Sulfate 4 mg 03/06/19 09:37 03/07/19 03:30 Morphine SLOW IVP 4 mg Q1H PRN Administration SEVERE BREAKTHROUGH PAIN Multivitamins 1 tab 03/07/19 09:00 03/07/19 08:53 Theragran PO 1 tab DAILY ARTHUR Administration Ondansetron HCl 4 mg 03/06/19 09:40 03/06/19 14:54 Zofran SLOW IVP 4 mg Q8H PRN Administration Nausea/Vomiting Pantoprazole Sodium 40 mg 03/06/19 21:00 03/07/19 08:53 Protonix PO 40 mg BID ARTHUR Administration Promethazine HCl 12.5 mg 03/06/19 09:37 03/06/19 21:15 Phenergan IM 12.5 mg Q4H PRN Administration Nausea/Vomiting Promethazine HCl 12.5 mg 03/06/19 09:37 03/06/19 19:02 Phenergan PO 12.5 mg Q4H PRN Administration Nausea/Vomiting Spironolactone 25 mg 03/07/19 09:00 03/07/19 08:53 Aldactone PO 25 mg DAILY ARTHUR Administration - Exam General Appearance: NAD Eye: anicteric sclera ENT: moist mucosa Neck: supple Heart: RRR Respiratory: CTAB Gastrointestinal: soft, non-tender Extremities: no clubbing Neurological: no weakness Psychiatric: normal affect, normal behavior Hosp A/P (1) HTN (hypertension) Code(s): I10 - ESSENTIAL (PRIMARY) HYPERTENSION Status: Chronic (2) Dyslipidemia Code(s): E78.5 - HYPERLIPIDEMIA, UNSPECIFIED Status: Chronic (3) GERD (gastroesophageal reflux disease) Code(s): K21.9 - GASTRO-ESOPHAGEAL REFLUX DISEASE WITHOUT ESOPHAGITIS Status: Chronic (4) Nausea and vomiting Code(s): R11.2 - NAUSEA WITH VOMITING, UNSPECIFIED Status: Resolved - Plan PT/OT, out of bed/ambulate nausea and vomiting have resolved. HTN controlled. Continue Lipitor. Continue Protonix.
[2019-03-07] MEDS: Promethazine HCl 25 MG/ML VIAL IM PRN (17:38)
[2019-03-07] MEDS: Atorvastatin Calcium 40 MG TAB PO SCH (20:28)
[2019-03-08] MEDS: Sodium Chloride 0.9% 1,000 ML IV SCH (03:02)
[2019-03-08] MEDS: HYDROcodone/Acetaminophen 10/325 mg Tablet PO PRN ×2 (05:18→13:17)
[2019-03-08] MEDS: busPIRone HCl 10 MG TAB PO SCH (08:22)
[2019-03-08] MEDS: Multivit, Therapeutic 1 TAB PO SCH (08:22)
[2019-03-08] MEDS: Cephalexin 250 MG CAP PO SCH ×2 (08:24→13:17)
[2019-03-08] MEDS: Spironolactone 25 MG TAB PO SCH (08:26)
[2019-03-08 11:25] VITALS: BP 126/66; TEMP 98.1
--- NOTE | 2019-03-09 03:54 | DIS ---
DATE OF ADMISSION: 03/06/2019 DATE OF DISCHARGE: 03/08/2019 Patient is a 68-year-old female, who underwent removal of hardware and decompression and extension of her lumbar fusion at L3-4 on 03/06/2019. Following surgery, she was transitioned to the Med/Surg floor. Her pain has been well-controlled with p.o. medications, she is tolerating a regular diet, and she is voiding appropriately. She has been ambulating easily in the hallways and worked with Physical Therapy and Occupational Therapy. Her JOSE MIGUEL output trended down and was removed on postoperative day 1. We will plan to dismiss the patient to home with home health assistance. We will plan to follow up with the patient in 2 weeks. I have discussed home care precautions. I have provided scripts for [place], Zanaflex, Keflex, and Zofran. Job ID: [id number]
--- NOTE | 2019-03-10 16:09 | EKG ---
Test Reason : PREOP Blood Pressure : / mmHG Vent. Rate : 060 BPM Atrial Rate : 060 BPM P-R Int : 152 ms QRS Dur : 086 ms QT Int : 428 ms P-R-T Axes : 053 023 015 degrees QTc Int : 428 ms Normal sinus rhythm Normal ECG When compared with ECG of 06-DEC-2017 11:26, No significant change was found Confirmed by DR. Pelon JEWELL ([id number]) on 03/10/2019 4:08:48 PM Referred By: ZULEIKA Confirmed By:DR. Pelon JEWELL
== END 2019-03-08 14:35 | disposition home health service (06) | DRG 460 ==
LOC: SURG A 05:39 → SURG B 11:19
PROVIDERS: ADMIT Neurological Surgery; ATTEND Neurological Surgery
PROC: 0SG1071 Fusion of 2 or more Lumbar Vertebral Joints with Autologous Tissue Substitute, Posterior Approach, Posterior Column, Open Approach (ICD-10-PCS; principal; 2019-03-06)
PROC: 0SP004Z Removal of Internal Fixation Device from Lumbar Vertebral Joint, Open Approach (ICD-10-PCS; 2019-03-06)
DX: M48.061 Spinal stenosis, lumbar region without neurogenic claudication (principal); N17.9 Acute kidney failure, unspecified; M54.16 Radiculopathy, lumbar region; E11.9 Type 2 diabetes mellitus without complications; E78.5 Hyperlipidemia, unspecified; I10 Essential (primary) hypertension; K21.9 Gastro-esophageal reflux disease without esophagitis; Z86.718 Personal history of other venous thrombosis and embolism; Z90.49 Acquired absence of other specified parts of digestive tract; Z90.710 Acquired absence of both cervix and uterus
CPT/HCPCS: 36415; 36416; 76000; 80048; 85025; 85610; 85730; 90471; 90662; 93005; 93010; C1713; C1768; G0008; J0690; J1100; J2001; J2270; J2405; J2550; J2704; J3010; J3370; J3490; Q0169

== ENCOUNTER 2019-03-28 08:31 | Outpatient (CLI) | payer MEDICARE ==
--- NOTE | 2019-03-28 08:56 | RAD ---
Lumbar spine 2 views HISTORY: Low back pain. Recent surgery. COMPARISON: 01/30/2019. FINDINGS: There are 5 lumbar type vertebrae with leftward convex rotatory scoliotic curvature. Cap Parts Cutter ior skin kiran now in place. Right pedicle screws and vertical ambrocio at the L3-4-5 levels. The right L4 pedicle screw continues to a pproach the superior endplate on the lateral view, similar in appearance to the most recent CT. On the frontal view, the right pedicle screw projects lateral to the expected location of the right p edicle. Please correlate with clinical and surgical findings. Metallic filter projects over the inferior vena cava. IMPRESSION: Degenerative and interval postoperative changes of the lumbar spine, with hardware placem ent as detailed above.
== END 2019-03-28 08:32 | disposition home or self-care (01) ==
LOC: TBSIIMAG 08:31
PROVIDERS: ATTEND Neurological Surgery
DX: M48.061 Spinal stenosis, lumbar region without neurogenic claudication (principal); M47.816 Spondylosis without myelopathy or radiculopathy, lumbar region; Z98.890 Other specified postprocedural states
CPT/HCPCS: 72100

== ENCOUNTER 2019-07-10 09:24 | Outpatient (CLI) | payer MEDICARE ==
--- NOTE | 2019-07-10 13:38 | MMO ---
Bilateral MAMMO Bilat Screen DDI+DEMETRIUS. CLINICAL HISTORY: Patient is 68 years old and is seen for screening. The patient has the following family history of breast cancer: mother, malignant (generic). The patient has no personal history of cancer. VIEWS: The views performed were: bilateral craniocaudal with tomosynthesis and bilateral mediolateral oblique with tomosynthesis. FILMS COMPARED: The present examination has been compared to prior imaging studies performed at [facility] on 07/03/2014, 08/02/2016 and 09/26/2017, and at [facility] on 06/18/2012. This study has been interpreted with the assistance of computer-aided detection. MAMMOGRAM FINDINGS: There are scattered fibroglandular densities. Benign calcifications are noted bilaterally. There are no suspicious masses, suspicious calcifications, or new areas of architectural distortion. IMPRESSION: THERE IS NO MAMMOGRAPHIC EVIDENCE OF MALIGNANCY. A ROUTINE FOLLOW-UP MAMMOGRAM IN 1 YEAR IS RECOMMENDED. THE RESULTS OF THIS EXAM WERE SENT TO THE PATIENT. ACR BI-RADS Category 2 - Benign finding MAMMOGRAPHY NOTE: 1. A negative mammogram report should not delay a biopsy if a dominant of clinically suspicious mass is present. 2. Approximately 10% to 15% of breast cancers are not detected by mammography. 3. Adenosis and dense breasts may obscure an underlying neoplasm. Reported by: PRINCE BOWDEN MD Electonically Signed: [id number]
== END 2019-07-10 09:25 | disposition home or self-care (01) ==
LOC: BICMAMMO 09:24
PROVIDERS: ATTEND Family Medicine
DX: Z12.31 Encounter for screening mammogram for malignant neoplasm of breast (principal); Z80.3 Family history of malignant neoplasm of breast
CPT/HCPCS: 77063; 77067

== ENCOUNTER 2019-08-19 12:11 | Outpatient (CLI) | payer MEDICARE ==
--- NOTE | 2019-08-19 12:57 | RAD ---
Lumbar spine 4 views HISTORY: Low back pain. Radiculopathy. FINDINGS: There is predominant sacralization of the fifth lumbar segment. Right pedicle screws and vertical rods at the L3-4-5 levels right L3 pedicle screw remains laterally and superiorly displaced to the expected location of the right pedicle. Cortication of the adjacent bone on the frontal view is now more well-defined. There is 0.6 cm lucency around the medial margin a nd 0.7 cm lucency along the inferior margin of the medical screw.. Vertebral body heights are maintained. Minimal degenerative spondylolisthesis at the L3-4 and L4-5 le vels is stable. No abnormal translational motion upon flexion or extension. Osteophytosis throughout the facets. Leftward convex curvature is apparent on the frontal view. Metallic filter in inferior vena cava. Metallic clips over the gallbladder fossa. IMPRESSION : Evidence of lateral/superior displacement of the right L3 pedicle screw with alexis-hardware lucency martins ggesting loosening.
--- NOTE | 2019-08-19 13:43 | RAD ---
LEFT HIP 2 VIEWS: HISTORY: Left hip pain, fall a month ago. FINDINGS/IMPRESSION: No acute fracture or dislocation is seen. Mild degenerative changes are present. POS: [facility]
== END 2019-08-19 12:12 | disposition home or self-care (01) ==
LOC: BICRAD 12:11
PROVIDERS: ATTEND Neurological Surgery
DX: M54.16 Radiculopathy, lumbar region (principal); M25.552 Pain in left hip; M16.12 Unilateral primary osteoarthritis, left hip; T84.226A Displacement of internal fixation device of vertebrae, initial encounter
CPT/HCPCS: 72110

== ENCOUNTER 2019-08-23 09:32 | Outpatient (CLI) | payer MEDICARE ==
--- NOTE | 2019-08-23 10:22 | RAD ---
EXAM: XR Lumbar Spine Min 4 View PROVIDED CLINICAL HISTORY: Lumbar radiculopathy. Patient was low back pain extends into right hip and down leg. COMPARISON: 08/19/2019 FINDINGS: Transitional vertebra seen at the lumbosacral junction with sacralization of the L5 vertebral body. L eft convex rotoscoliosis of the lumbar spine is again present. The right-sided pedicle screws transfixed by posterior ambrocio are seen at the L3, L4, and L5 vertebral bodies. The right L3 screw remai ns lateral to the L3 vertebral body and slightly superiorly located as well. There does appear to be scalloping of the adjacent vertebral body at the level of this screw with 2 separate rounded appea ring lucencies at the right lateral aspect of the vertebral bodies stable from prior exam. There is stable grade 1 anterolisthesis of L4 on L5. Vertebral body heights are within normal limits. No fracture or new level of subluxation is seen. Surgical clips overlie the right upper quadrant. IVC filter is again noted in place IMPRESSION: 1. Persistent lateral and superior displacement right L3 pedicle screw with perihardware lucency agai n seen similar to the prior exam. 2. Stable left convex rotoscoliosis lumbar spine. 3. Views of the lumbar spine are overall stable compared to prior study.
--- NOTE | 2019-08-23 11:22 | RAD ---
RIGHT HIP 2 VIEWS: HISTORY: Hip pain. FINDINGS: Minimal arthritic changes of the hip are noted. Some minimal spur formation without a significant de gree of joint space narrowing. The bones appear somewhat demineralized. IMPRESSION: Minimal arthritic changes of the hip. POS: [facility]
--- NOTE | 2019-08-23 13:26 | CT ---
CT OF THE LUMBAR SPINE WITHOUT CONTRAST: 08/23/19 INDICATION: 68-year-old female with history of fall two weeks ago with low back pain extending into the right hip and down the right leg. COMPARISON: CT lumbar myelogram dated 01/30/19. FINDINGS: The posterolateral fusion at L4-5 is stable appearing. The right posterior lateral fusion construct a t L4-5 on the prior examination has been revised. There has been interval placement of a new right pe dicular screw at the L3 vertebral level. There is prominent lucency surrounding the right L3 pedicula r screw. There is a vertically oriented fracture extending through the right pedicle, best seen on co marc image 33 of series 602. The right L5 pedicle screw has also been revised and projects anterolat eral to the right L5 cortex approximately 1.2 cm. There has been interval laminectomy at L3. There is vacuum disc phenomenon at L3-4 and L4-5. No acute fracture is evident. There is levoscoliosis of the lumbar spine. There is an IVC filter seen below the left renal vein. Cholecystectomy clips are seen within the right upper quadrant. There is mild scattered vascular calcifications. IMPRESSION: 1. Interval revision of the posterolateral spinal construct with replacement of the pedicular sc rew at L5. The L5 pedicular screw projects beyond the anterolateral cortex of the L5 vertebra approxi mately 1.2 cm. Newly placed right L3 pedicular screw has prominent lucency surrounding the screw susp icious for either loosening or infection. There is a suspected periprosthetic insufficiency fracture involving the right L3 pedicle. 2. No additional acute fracture or subluxation seen involving the lumbar spine. 3. Interval laminectomy at L3. POS: [facility]
== END 2019-08-23 09:33 | disposition home or self-care (01) ==
LOC: TBSIIMAG 09:32
PROVIDERS: ATTEND Neurological Surgery
DX: M54.16 Radiculopathy, lumbar region (principal); M25.551 Pain in right hip; M16.11 Unilateral primary osteoarthritis, right hip; M41.9 Scoliosis, unspecified; Z98.890 Other specified postprocedural states
CPT/HCPCS: 72110; 72131

== ENCOUNTER 2019-10-18 09:29 | Outpatient (CLI) | payer MEDICARE ==
--- NOTE | 2019-10-18 12:41 | ULT ---
HEPATIC ULTRASOUND WITH CHAVEZ SCALE AND COLOR FLOW AND SPECTRAL DOPPLER IMAGING: HISTORY: Liver cyst. GERD. Persistent colon polyps. FINDINGS: Multiple cysts are seen in the liver involving the left lobe measuring 2.7, 1.5, and 2.9 cm respectiv jesika. No abnormal biliary ductal dilatation is seen. The common duct measures 4 mm in diameter. The patient is post cholecystectomy with a cluster of cysts in the gallbladder fossa measuring 2.4 x 2.9 x 2.8 cm. The spleen and visualized portions of the pancreas are normal. The spleen measures 8.5 cm in length. No free fluid is seen. There is normal flow and spectral waveforms in the hepatic, portal, and splenic vasculature. IMPRESSION: 1. Cysts in the liver and the gallbladder fossa. 2. Status post cholecystectomy. POS: [facility]
== END 2019-10-18 09:30 | disposition home or self-care (01) ==
LOC: BICULT 09:29
PROVIDERS: ATTEND Internal Medicine Gastroenterology
DX: K76.89 Other specified diseases of liver (principal); K21.9 Gastro-esophageal reflux disease without esophagitis; K82.8 Other specified diseases of gallbladder; Z86.010 Personal history of colon polyps; Z90.49 Acquired absence of other specified parts of digestive tract
CPT/HCPCS: 36415; 76705; 80076

== ENCOUNTER 2020-01-08 09:30 | Inpatient (IN) | payer MEDICARE, OTHER ==
[2020-01-13] MEDS ORDERED: Fentanyl 100 MCG/2 ML VIAL ONE ×3 (09:57→12:04)
[2020-01-13] MEDS ORDERED: Atracurium 100 MG/10 ML VIAL ONE (09:58)
[2020-01-13] MEDS ORDERED: Midazolam HCl 2 mg/2 ml Vial ONE (10:02)
[2020-01-13] MEDS ORDERED: Ondansetron HCl/PF 4 MG/2 ML Vial IVP PRN (11:47)
--- NOTE | 2020-01-13 12:18 | OP ---
DATE OF PROCEDURE: 01/13/2020 CUSTOMER SUPPORT ASSISTANT: Lashay Wu PA-C PROCEDURE PERFORMED: Removal of hardware L3 through L5, expiration of spinal fusion L3 through L5, posterolateral arthrodesis, BMP cancellous bone chips L3 through L5. DESCRIPTION OF PROCEDURE: The patient was brought to the operating room and intubated. She was rolled in a prone position on gel-filled chest rolls. The previous incision was reopened and the prior hardware was identified and removed without difficulty. We explored the spinal fusion and could not find evidence that it was solid. We prepared the posterolateral surfaces for the purpose of arthrodesis and then placed a combination of BMP on Gelfoam with cancellous bone chips in the posterolateral recesses. The wound had previously been extensively irrigated and MAC hemostasis had been secured. Vancomycin powder was applied and the wound was then closed in anatomic layers. Job ID: [id number]
[2020-01-13] MEDS ORDERED: Ondansetron PF 4 MG/2 ML Vial ONE (12:30)
[2020-01-13] MEDS ORDERED: Ketorolac Tromethamine 30 MG/ML VIAL ONE (12:30)
[2020-01-13] MEDS ORDERED: PROPOFOL 200 MG/20 ML VIAL ONE (12:30)
[2020-01-13] MEDS ORDERED: Lidocaine 1% PF 5 ML VIAL ONE (12:30)
[2020-01-13] MEDS ORDERED: Dexamethasone 20 MG/5 ML VIAL ONE (12:30)
[2020-01-13] MEDS ORDERED: Glycopyrrolate 0.2 MG/ML 5 ML SYRINGE ONE (12:30)
[2020-01-13] MEDS ORDERED: HYDROcodone/Acetaminophen 10/325 mg Tablet PO PRN (13:30)
[2020-01-13] MEDS ORDERED: Morphine 2 MG/ML VIAL SLOW IVP PRN (13:30)
[2020-01-13] MEDS ORDERED: diphenhydrAMINE 50 MG/ML VIAL IVP PRN (13:30)
[2020-01-13] MEDS ORDERED: Morphine 4 MG/ML VIAL SLOW IVP PRN (13:30)
[2020-01-13] MEDS ORDERED: traMADol HCl 50 MG TAB PO PRN ×2 (13:30)
[2020-01-13] MEDS ORDERED: Bisacodyl 10 MG SUPP PR PRN (13:30)
[2020-01-13] MEDS ORDERED: Milk Of Magnesia 30 ML UDCUP PO PRN (13:30)
[2020-01-13] MEDS ORDERED: Mag-Al 1200 mg/1200 mg/30 ML UDCUP PO PRN (13:30)
[2020-01-13] MEDS ORDERED: diphenhydrAMINE 25 MG CAP PO PRN (13:30)
[2020-01-13] MEDS ORDERED: tiZANidine HCl 4 MG TAB PO PRN (13:30)
[2020-01-13] MEDS ORDERED: Ondansetron PF 4 MG/2 ML Vial IM PRN (13:30)
[2020-01-13] MEDS: Sodium Chloride 0.9% 1,000 ML IV SCH (13:50)
[2020-01-13] MEDS ORDERED: Ondansetron PF 4 MG/2 ML Vial IVP PRN (14:02)
--- NOTE | 2020-01-13 15:00 | CON ---
DATE OF CONSULTATION: HISTORY OF PRESENT ILLNESS: The patient was admitted with severe exacerbation of chronic back pain. She was evaluated preoperatively by Dr. Sweeney. She gave me no radicular symptoms, no bowel or bladder complications, etc. PAST MEDICAL HISTORY: Pertinent for hypertension, diabetes mellitus type 2, dyslipidemia, history of deep vein thrombosis, chronic anticoagulation. CHRONIC MEDICATIONS: At the time of admission 1. Boniva 150 mg p.o. q. 30 days. 2. Spironolactone hydrochlorothiazide 1 tab a day. 3. Hydrocodone acetaminophen 10/325 mg p.o. q.6 hours p.r.n. 4. Lipitor 40 mg a day. 5. Diclofenac 50 mg p.o. b.i.d. p.r.n. 6. Vitamin D3 daily. 7. Eliquis 5 mg p.o. b.i.d. 8. BuSpar 15 mg p.o. daily. 9. Protonix 40 mg p.o. b.i.d. ALLERGIES: CODEINE. PAST SURGICAL HISTORY: Lumbar spine surgery, hysterectomy, hiatal hernia repair, appendectomy, cholecystectomy. FAMILY HISTORY: Positive for deep vein thrombosis. SOCIAL HISTORY: Full code status. No alcohol, tobacco, or illicit drugs. REVIEW OF SYSTEMS: GENERAL: No headaches, dizziness or fainting. EYES: No double vision, blurred vision, or flashing light. EAR, NOSE, AND THROAT: No ear pain or drainage. No nasal bleeding. No trouble swallowing. CARDIAC: No chest pain, orthopnea or paroxysmal nocturnal dyspnea. RESPIRATION: No cough, wheezing, or asthma. GASTROINTESTINAL: She has severe nausea as she has woken up postsurgery. No hematemesis. No abdominal pain. No diarrhea. GENITOURINARY: No hematuria, dysuria. MUSCULOSKELETAL: She has chronic edema in her legs, mild. No muscle pains at this time. SKIN: No bruising, bleeding or rash. HEME/LYMPH: No tender or swollen lymph nodes in axilla, inguinal, or cervical area. PSYCHIATRIC: No anxiety or depression issues at this time. PHYSICAL EXAMINATION: VITAL SIGNS: Blood pressure 176/88, pulse 60, respirations 16, temperature 97.9. HEAD, EYES, EARS, NOSE, AND THROAT: Pupils equal, round, and reactive to light. Extraocular movements are intact. Sclerae are white. Tympanic membranes clear. Nose clear. Oral mucous membranes are wet. Dental hygiene is good. NECK: No jugular venous distention, adenopathy, thyromegaly or bruits. CHEST: Clear to auscultation and percussion. HEART: Regular rate and rhythm. First and second heart sounds are clear. There are no murmurs or gallops. ABDOMEN: Soft. Bowel sounds are normal. There is no hepatosplenomegaly. No mass. No rebound. No bruits. EXTREMITIES: No cyanosis or clubbing. 1+ edema. PULSES: Carotid, radial, femoral, and dorsalis pedis pulses intact. SKIN: Warm and dry without bruises or rash HEME/LYMPH: No tender or swollen lymph nodes in axilla, inguinal, cervical area. NEUROLOGIC: Cranial nerves 2 through 12 are intact. Deep tendon reflexes diminished but symmetric. STUDIES: Electrocardiogram done 01/07/20, sinus rhythm with sinus arrhythmia, possible septal infarct, age undetermined. No acute ST-T abnormality reviewed by me. LABORATORY DATA: Laboratory done 01/08/20, white cell count 4.6, hemoglobin 14.6, platelet count 245,000. Electrolytes are balanced. Renal function studies are normal. Blood sugar is 96. COVID is negative. ADMITTING DIAGNOSES: 1. Severe chronic back pain. 2. Diabetes mellitus type 2. 3. Hypertension. 4. Dyslipidemia. 5. Anticoagulation. 6. Post lumbar fusion revision with removal of hardware, etc. ASSESSMENT: Patient with some nausea postop, otherwise doing well. Agree withholding anticoagulation. Nausea medicines have been ordered. Would continue home medicines other than Eliquis as soon as nausea resolves. Job ID: [id number] [facility]
[2020-01-13] MEDS: CEFAZOLIN 2 GM in Premix Bag 1 BAG IVPB SCH (16:10)
[2020-01-13 18:15] VITALS: BMI 26.2
[2020-01-13] MEDS: HYDROcodone/Acetaminophen 10/325 mg Tablet PO PRN (19:47)
[2020-01-13] MEDS: busPIRone HCl 10 MG TAB PO SCH (20:50)
[2020-01-13] MEDS ORDERED: Atorvastatin Calcium 40 MG TAB PO SCH (21:00)
[2020-01-13] MEDS ORDERED: DICLOFENAC POTASSIUM 50 MG PO SCH (21:00)
[2020-01-14] MEDS: CEFAZOLIN 2 GM in Premix Bag 1 BAG IVPB SCH (00:51)
[2020-01-14] MEDS: Sodium Chloride 0.9% 1,000 ML IV SCH (05:30)
[2020-01-14] MEDS: HYDROcodone/Acetaminophen 10/325 mg Tablet PO PRN (05:44)
[2020-01-14 08:10] VITALS: TEMP 97.7
[2020-01-14] MEDS ORDERED: Hydrochlorothiazide 25 MG TAB PO SCH (09:00)
[2020-01-14] MEDS ORDERED: Multivit, Therapeutic 1 TAB PO SCH (09:00)
[2020-01-14] MEDS ORDERED: HCTZ PO SCH (09:00)
[2020-01-14] MEDS ORDERED: Spironolactone 25 MG TAB PO SCH (09:00)
[2020-01-14] MEDS ORDERED: Cholecalciferol 1,000 UNITS (25 MCG) TAB PO SCH (09:00)
[2020-01-14] MEDS ORDERED: SPIRONO PO SCH (09:00)
[2020-01-14] MEDS: busPIRone HCl 10 MG TAB PO SCH (10:06)
[2020-01-14 11:40] VITALS: BP 135/62
--- NOTE | 2020-01-15 02:13 | DIS ---
DATE OF ADMISSION: 01/13/2020 DATE OF DISCHARGE: 01/14/2020 HOSPITAL COURSE: Patient is a 69-year-old female recently evaluated in our office for progressive back and right hip pain. She was found to have loosening of the hardware, particularly the right L3 screw. Patient underwent removal of hardware and placement of BMP on 01/13/2020. Following the surgery, she was transitioned to the Med/Surg floor, where her pain has been well-controlled with p.o. medications, she is tolerating a regular diet, and she is voiding appropriately. She was instructed to wear her LSO brace for all out of bed activities and she has been compliant with this. On exam on postoperative day 1, patient was sitting up comfortable, in no acute distress. She has free active range of motion of all extremities. No focal motor weakness. There is a small amount of dark red blood on the dressing. Patient is doing quite well following her removal. We will plan to dismiss the patient to home. We have discussed home care and dressing changes at home. I will arrange home health physical therapy with [facility] at discharge. With regard to her blood thinners, we will have her hold her Eliquis for 72 hours postoperatively and then she may resume on 01/16/2020. We will have her stop the Lovenox. She can resume any of her other additional home medications. We will follow up in 2 weeks. Job ID: [id number]
== END 2020-01-14 14:00 | disposition home or self-care (01) | DRG 460 ==
LOC: SURG A 01-13 07:26 → SURG B 01-13 13:01
PROVIDERS: ADMIT Neurological Surgery; ATTEND Neurological Surgery
PROC: 0SG1071 Fusion of 2 or more Lumbar Vertebral Joints with Autologous Tissue Substitute, Posterior Approach, Posterior Column, Open Approach (ICD-10-PCS; principal; 2020-01-13)
PROC: 0SP00JZ Removal of Synthetic Substitute from Lumbar Vertebral Joint, Open Approach (ICD-10-PCS; 2020-01-13)
DX: T84.038A Mechanical loosening of other internal prosthetic joint, initial encounter (principal); Y83.8 Other surgical procedures as the cause of abnormal reaction of the patient, or of later complication, without mention of misadventure at the time of the procedure; M54.16 Radiculopathy, lumbar region; Z11.59 Encounter for screening for other viral diseases; I10 Essential (primary) hypertension; K58.9 Irritable bowel syndrome, unspecified; N18.2 Chronic kidney disease, stage 2 (mild); I12.9 Hypertensive chronic kidney disease with stage 1 through stage 4 chronic kidney disease, or unspecified chronic kidney disease; J30.2 Other seasonal allergic rhinitis; F32.9 Major depressive disorder, single episode, unspecified; E78.5 Hyperlipidemia, unspecified; Z86.718 Personal history of other venous thrombosis and embolism; Z79.01 Long term (current) use of anticoagulants; Z90.710 Acquired absence of both cervix and uterus; Z79.899 Other long term (current) drug therapy
CPT/HCPCS: 76000; J0690; J2250; J2405; J3010; J3370; J3490

== ENCOUNTER 2020-01-28 09:04 | Outpatient (CLI) | payer MEDICARE ==
--- NOTE | 2020-01-28 09:36 | RAD ---
RADIOGRAPH LUMBAR SPINE 2 VIEWS: DATE: 01/28/2020 HISTORY: 69-year-old female with lumbar radiculopathy. COMPARISON: 08/23/2019 FINDINGS: The first nonrib-bearing vertebra will be designated as L1. The level at the lumbosacral junction portillo l be designated as L5, for which the bilateral posterior elements are fused to the S1 sacral ala. The previously demonstrated right pedicle screws at L3, L4, and L5, are no longer present. Again note d is the grade 1 anterolisthesis of L3 on L4. This is either stable or minimally worse. Severe disc space narrowing at L3-4. Grade 1 anterolisthesis of L4 on L5 is unchanged. Moderate to severe disc space narrowing at L4-5. Se soledad facet DJD at lower levels. Diffuse osteopenia. Vertebral body heights are maintained. Levoscoliosis. IVC filter. New posterior skin kiran. IMPRESSION: 1) very recent interval removal of the 3 right-sided pedicle screws. 2) severe lumbar spondylosis, with high-grade degenerative disc disease, facet osteoarthrosis, and gr amaya 1 spondylolisthesis at L3-4 and L4-5
== END 2020-01-28 09:05 | disposition home or self-care (01) ==
LOC: TBSIIMAG 09:04
PROVIDERS: ATTEND Neurological Surgery
DX: M47.26 Other spondylosis with radiculopathy, lumbar region (principal); M51.16 Intervertebral disc disorders with radiculopathy, lumbar region; M43.16 Spondylolisthesis, lumbar region
CPT/HCPCS: 72100

== ENCOUNTER 2020-03-23 09:01 | Outpatient (CLI) | payer MEDICARE ==
--- NOTE | 2020-03-23 11:05 | RAD ---
LUMBAR SPINE RADIOGRAPHS 2 VIEWS: DATE: 03/23/2020. PROVIDED CLINICAL HISTORY: Lumbar radiculopathy. FINDINGS: Comparison 01/28/2020. Lumbar alignment appears unchanged. Vertebral body heights appear preserved. Lumbar disk and facet degenerative changes are redemonstrated. Pedicles appear intact. IVC filter and cholecystectomy clips are redemonstrated. IMPRESSION: No significant interval change. POS: [facility]
== END 2020-03-23 09:02 | disposition home or self-care (01) ==
LOC: TBSIIMAG 09:01
PROVIDERS: ATTEND Neurological Surgery
DX: M54.16 Radiculopathy, lumbar region (principal)
CPT/HCPCS: 72100

== ENCOUNTER 2020-04-09 09:46 | Outpatient (CLI) | payer MEDICARE ==
--- NOTE | 2020-04-09 10:20 | RAD ---
EXAM: XR Hip Rt 2-3 View PROVIDED CLINICAL HISTORY: Pain COMPARISON: 08/23/2019 FINDINGS: There is no evidence for fracture or other acute osseous abnormality. Alignment appears anatomic. Suzan nt spaces appear preserved. IMPRESSION: No evidence for an acute osseous abnormality or significant arthropathy.
--- NOTE | 2020-04-09 10:38 | ULT ---
VENOUS DOPPLER ULTRASOUND OF THE RIGHT LOWER EXTREMITY: Date: 04/09/2020 HISTORY: Right lower extremity pain. Blood clotting disorder. Patent is on blood thinners. Pain in anterior th igh. TECHNIQUE: Sawyer scale ultrasound with color flow and spectral Doppler imaging of the deep venous system of the r ight lower extremity performed. FINDINGS: There is good flow, compression, and augmentation noted in the right common femoral, femoral, deep fe moral, popliteal, posterior tibial, and greater saphenous veins. No abnormality seen in the region of pain the right anterior thigh. IMPRESSION: No evidence of deep venous thrombosis in the right lower extremity. POS: [facility]
== END 2020-04-09 09:47 | disposition home or self-care (01) ==
LOC: BICULT 09:46
PROVIDERS: ATTEND Family Medicine
DX: I82.412 Acute embolism and thrombosis of left femoral vein (principal); D68.9 Coagulation defect, unspecified; M79.651 Pain in right thigh

== ENCOUNTER 2020-05-07 09:35 | Outpatient (CLI) | payer MEDICARE ==
--- NOTE | 2020-05-07 10:16 | RAD ---
Exam: 2 views lumbar spine COMPARISON: 03/23/2020 HISTORY: Low back pain. Previous surgery. FINDINGS: AP and lateral view lumbar spine are performed with the patient weightbearing position Stable leftward curvature lumbar spine. IVC filter is noted Stable hypertrophic changes in the posterior elements at L3, L4, L5. 0.9 cm of anterolisthesis of L3 upon L4 0.8 cm of anterolisthesis of L4 upon L5 The overall degree of anterolisthesis has not significantly changed. Visualized sacrum and bony pelvis are intact IMPRESSION: Stable degenerative changes of the lumbar spine. Stable anterolisthesis.
== END 2020-05-07 09:36 | disposition home or self-care (01) ==
LOC: BICRAD 09:35
PROVIDERS: ATTEND Neurological Surgery
DX: M54.5 Low back pain (principal); M47.816 Spondylosis without myelopathy or radiculopathy, lumbar region; M43.16 Spondylolisthesis, lumbar region
CPT/HCPCS: 72100

== ENCOUNTER 2020-05-20 13:10 | Outpatient (CLI) | payer MEDICARE ==
[~2020-05-20 13:10] MED LIST changes: -FLU VACC TS2019-20(65YR UP)/PF 180 MCG/0.5 ML SYRINGE IM ONE; +Magnevist 469MG/ML 20 ML VIAL ONE
--- NOTE | 2020-05-20 14:49 | MRI ---
MR of the Righthip without contrast INDICATION: History of Righthip pain; low back pain and right knee pain COMPARISON: Right hip radiograph dated April 09, 2020 TECHNIQUE: Multiplanar multisequence MR images were obtained of the Right hip without IV contrast. FINDINGS: Bone marrow signal intensity: There is a small subchondral insufficiency fracture involving the right anterior pubic root best seen on image 18 of series 8 and image 31 of series 9 with mild surrounding edema. Musculature: There is a full-thickness tear of the right gluteus minimus and a full-thickness, partia l width tear of the anterior right gluteus medius tendon. There is mild muscular atrophy of the right gluteus minimus. The right rectus femoris is intact. There is partial-thickness tear at the mario gin of the right hamstrings. Bursa: No iliopsoas bursitis is evident. There is mild trochanteric bursitis. Joint: There is mild osteoarthrosis of both hips. No definite parallel labral cyst is identified. Nerves: Normal. Intrapelvic contents: Uterus is surgically absent. The bladder is decompressed. No definite free flui d is evident. IMPRESSION: 1. Nondisplaced subchondral insufficiency fracture of the right anterior pubic root 2. Full-thickness tear of the right gluteus minimus tendon and a full-thickness partial width tear of the anterior right gluteus medius tendon with mild trochanteric bursitis. 3. Partial-thickness tear involving the right hamstring origins.
--- NOTE | 2020-05-20 16:14 | MRI ---
MRI of thelumbar spine with and without contrast: 05/20/2020 COMPARISON:07/06/2018 HISTORY:Lumbar radiculopathy, low back pain radiating into the right hip and knee, multiple prior lum bar spine surgeries TECHNIQUE: Multiplanar multisequence MR imaging of thelumbar spine with and without contrast Findings:The sagittal STIR imaging demonstrates new increased signal intensity within the interverteb ral disc at L3-4. There is new endplate signal abnormality involving the inferior endplate at L3 and superior endplate of L4. There is a linear area of increased STIR signal lateral to the pedicle o n the right at L3 which is in an area of osseous remodeling associated with a postoperative screw which was present on prior CT performed 08/23/2019, which has since been removed. In addition, right-si ded L4 and L5 pedicle screws have been removed as has a vertically oriented interlocking ambrocio. There is severe facet disease bilaterally at the L3-4 and L4-5 levels, better assessed on the 08/23/2019 CT e xamination. On the basis of 5 lumbar type vertebral bodies, conus medullaris terminates at the T12-L1 level. T12-L1: There is disc space narrowing with disc desiccation, mild disc bulge, and mild anterior osteo phyte formation. There is no significant central canal stenosis. Mild bilateral facet hypertrophy present with mild bilateral neural foraminal stenosis. L1-2: There is disc desiccation and mild disc bulge. There is mild bilateral facet hypertrophy. No ce ntral canal stenosis. No significant neural foraminal stenosis. L2-3: There is disc space narrowing and disc desiccation with disc bulge. Bilateral facet hypertrophy is noted, right greater than left. There is mild/moderate right neural foraminal stenosis. No significant central canal or left neural foraminal stenosis. L3-4: There is anterolisthesis measuring 8 mm, new when compared to the prior exam. There is severe f acet disease bilaterally at L3-4 with fluid within bilateral facet joints. There is severe bilateral neural foraminal stenosis and there is severe central canal stenosis at L3-4, all of which have significantly worsened when compared to the 07/06/2018 study. L4-5: There is anterolisthesis measuring 8 mm, similar when compared to the prior exam. There is prom inent bilateral facet hypertrophy, right greater than left with a probable synovial cyst emanating from the anterior aspect of the right facet joint measuring in the 9 mm range. This synovial cyst collin ears new. There is stable mild central canal stenosis. There is mild/moderate bilateral neural foraminal stenosis. L5-S1: There is disc space narrowing with disc desiccation. No significant central canal or neural fo raminal stenosis. The thecal sac is empty at the axial level of the L4-5 level through the inferior aspect of the theca l sac, suggesting stable arachnoiditis. The imaged retroperitoneal structures demonstrate no acute findings. The postcontrast imaging demonstrates no evidence for abnormal enhancement involving the nerve roots of the cauda equina. There is enhancement involving the midline soft tissues posterior to the thecal sac at the L4-5 level. There is a mild degree of enhancement involving the L3-4 disc level and there is enhancement involving the posterior paraspinal soft tissues from the L3-4 level through the L5-S1 level. These area areas of enhancement are favored to be on the basis of postoperative and degenerative change. While infection at L3-4 cannot be fully excluded given enhancement and abnormal signal intensity, the interval removal of hardware and the new anterolisthesis at L3-4 with fluid within bilateral facet joints suggests that these changes are likely associated with abnormal motion/instability. IMPRESSION: Extensive postoperative and degenerative change within the lumbar spine as detailed above . Please see above discussion.
== END 2020-05-20 13:11 | disposition home or self-care (01) ==
LOC: BICMRI 13:10
PROVIDERS: ATTEND Neurological Surgery
DX: M47.26 Other spondylosis with radiculopathy, lumbar region (principal); M54.5 Low back pain; M25.559 Pain in unspecified hip; S76.311A Strain of muscle, fascia and tendon of the posterior muscle group at thigh level, right thigh, initial encounter; M84.454A Pathological fracture, pelvis, initial encounter for fracture; M70.61 Trochanteric bursitis, right hip; Z98.890 Other specified postprocedural states
CPT/HCPCS: 72158; 82565; A9579

== ENCOUNTER 2020-07-13 09:45 | Outpatient (CLI) | payer MEDICARE | END 2020-07-13 09:46 | disposition home or self-care (01) | LOC: ULT 09:45 | PROVIDERS: ATTEND Physician Assistant Medical | DX: K76.89 Other specified diseases of liver (principal); R74.8 Abnormal levels of other serum enzymes; Z90.49 Acquired absence of other specified parts of digestive tract | CPT/HCPCS: 36415; 76705; 80076; 84075 ==

== ENCOUNTER 2021-01-06 09:43 | Outpatient (CLI) | payer MEDICARE | END 2021-01-06 09:44 | disposition home or self-care (01) | LOC: BICRAD 09:43 | PROVIDERS: ATTEND Neurological Surgery | DX: M54.5 Low back pain (principal); M47.816 Spondylosis without myelopathy or radiculopathy, lumbar region; M47.817 Spondylosis without myelopathy or radiculopathy, lumbosacral region; Z98.890 Other specified postprocedural states | CPT/HCPCS: 72100 ==

== ENCOUNTER 2021-03-01 10:57 | Outpatient (CLI) | payer MEDICARE | END 2021-03-01 10:58 | disposition home or self-care (01) | LOC: BICMAMMO 10:57 | PROVIDERS: ATTEND Family Medicine | DX: Z12.31 Encounter for screening mammogram for malignant neoplasm of breast (principal); Z80.3 Family history of malignant neoplasm of breast | CPT/HCPCS: 77063; 77067 ==

== ENCOUNTER 2021-07-09 11:03 | Outpatient (CLI) | payer MEDICARE | END 2021-07-09 11:04 | disposition home or self-care (01) | LOC: BICMRI 11:03 | PROVIDERS: ATTEND Specialist | DX: M96.1 Postlaminectomy syndrome, not elsewhere classified (principal); M48.062 Spinal stenosis, lumbar region with neurogenic claudication; M47.816 Spondylosis without myelopathy or radiculopathy, lumbar region; M51.36 Other intervertebral disc degeneration, lumbar region; M43.16 Spondylolisthesis, lumbar region; Z98.890 Other specified postprocedural states; M71.38 Other bursal cyst, other site | CPT/HCPCS: 72158; 82565 ==

== ENCOUNTER 2021-08-17 08:17 | Outpatient (CLI) | payer MEDICARE | END 2021-08-17 08:18 | disposition home or self-care (01) | LOC: BICULT 08:17 | PROVIDERS: ATTEND Physician Assistant Medical | DX: K76.89 Other specified diseases of liver (principal); K21.9 Gastro-esophageal reflux disease without esophagitis; R74.8 Abnormal levels of other serum enzymes | CPT/HCPCS: 76705 ==

== ENCOUNTER 2021-10-02 18:07 | Emergency (ER) | payer MEDICARE ==
[2021-10-02] MEDS ORDERED: Morphine 4 MG/ML VIAL ONE (18:44)
[2021-10-02] MEDS ORDERED: Acetaminophen 500 MG TAB ONE (18:44)
[2021-10-02] MEDS ORDERED: Ketorolac Tromethamine 30 MG/ML VIAL ONE (18:44)
== END 2021-10-02 19:40 | disposition home or self-care (01) ==
LOC: ERS 18:07
DX: M54.50 Low back pain, unspecified (principal); G89.29 Other chronic pain; I10 Essential (primary) hypertension; E78.00 Pure hypercholesterolemia, unspecified; E11.43 Type 2 diabetes mellitus with diabetic autonomic (poly)neuropathy; K31.84 Gastroparesis; Z79.899 Other long term (current) drug therapy; Z79.01 Long term (current) use of anticoagulants
CPT/HCPCS: 96372; 99283; J1885; J2270

== ENCOUNTER 2022-02-24 07:01 | Observation (INO) | payer MEDICARE ==
[2022-02-22 13:03] VITALS: BMI 25.0
[2022-02-24] MEDS ORDERED: Vancomycin 1 GM/200 ML BAG ONE (07:52)
[2022-02-24] MEDS ORDERED: Tranexamic Acid 1,000 MG/10 ML VIAL ONE (07:52)
[2022-02-24] MEDS ORDERED: Sodium Chloride 0.9% 100 ML ONE ×2 (07:52→09:45)
[2022-02-24] MEDS ORDERED: FENTANYL 50 MCG/ML 1 ML VIAL ONE (08:49)
[2022-02-24] MEDS ORDERED: Lidocaine 1% MPF 2 ML VIAL ONE (08:53)
[2022-02-24] MEDS ORDERED: fentaNYL PF 100 MCG/2 ML SYRINGE ONE ×3 (09:36→11:27)
[2022-02-24] MEDS ORDERED: CEFAZOLIN 2 GM VIAL ONE (09:45)
[2022-02-24] MEDS ORDERED: NEOSTIGMINE 3 MG/3 ML SYR 3 MG/3 ML SYRINGE ONE (09:57)
[2022-02-24] MEDS ORDERED: Ondansetron PF 4 MG/2 ML Vial ONE ×2 (09:57→11:27)
[2022-02-24] MEDS ORDERED: PROPOFOL 200 MG/20 ML VIAL ONE (09:57)
[2022-02-24] MEDS ORDERED: ePHEDrine 50 MG/ML VIAL ONE (09:57)
[2022-02-24] MEDS ORDERED: Rocuronium Bromide 10 MG/ML (10ML VIAL) ONE (09:57)
[2022-02-24] MEDS ORDERED: Esmolol 100 MG/10 ML VIAL ONE (09:57)
[2022-02-24] MEDS ORDERED: PHENYLEPHRINE-NS 100 MCG/ML 10 ML SYRINGE ONE (09:57)
[2022-02-24] MEDS ORDERED: Glycopyrrolate 0.2 MG/ML 5 ML SYRINGE ONE (09:57)
[2022-02-24] MEDS ORDERED: Ropivacaine 0.5% HCl/PF (150 MG/30 ML VIAL) ONE (09:57)
[2022-02-24] MEDS ORDERED: HYDROcodone/Acetaminophen 10/325 mg Tablet PO PRN ×2 (10:00)
[2022-02-24] MEDS ORDERED: Non-Formulary Item 1 EACH (Tizanidine Hcl [Zanaflex] 4 MG Capsule) PO PRN (10:02)
[2022-02-24] MEDS ORDERED: ONDANSETRON HCL 4 MG PO PRN (10:02)
[2022-02-24] MEDS ORDERED: Phenylephrine 10 MG/ML VIAL ONE (10:09)
[2022-02-24] MEDS ORDERED: Ondansetron ODT 4 MG TAB PO PRN (10:13)
[2022-02-24] MEDS ORDERED: tiZANidine HCl 4 MG TAB PO PRN (10:13)
[2022-02-24] MEDS ORDERED: Non-Formulary Item 1 EACH (Ibandronate Sodium [Boniva] 150 MG Tablet) PO SCH (10:15)
[2022-02-24] MEDS ORDERED: Ergocalciferol 1.25 MG(50,000 UNITS) CAP PO SCH ×2 (10:15→12:00)
[2022-02-24 10:32] LABS: SARS-CoV-2 NAA Rapid Test DETECTED (NotDetected)
[2022-02-24] MEDS ORDERED: Promethazine HCl 25 MG/ML VIAL IVPB PRN (11:37)
[2022-02-24] MEDS ORDERED: Promethazine HCl 25 MG/ML VIAL IM PRN ×2 (11:37→12:00)
[2022-02-24] MEDS ORDERED: Ondansetron HCl/PF 4 MG/2 ML Vial IVP PRN (11:37)
[2022-02-24] MEDS ORDERED: Promethazine HCl 25 MG/ML VIAL ONE (11:58)
[2022-02-24] MEDS ORDERED: Zolpidem Tartrate 5 MG TAB PO PRN (12:00)
[2022-02-24] MEDS ORDERED: Ketorolac Tromethamine 30 MG/ML VIAL IVP PRN (12:00)
[2022-02-24] MEDS ORDERED: Ropivacaine 0.2% 550 ML 550 ML NERVE BLCK SCH (12:00)
[2022-02-24] MEDS ORDERED: traMADol HCl 50 MG TAB PO PRN ×2 (12:00)
[2022-02-24] MEDS ORDERED: Ondansetron PF 4 MG/2 ML Vial IVP PRN (12:00)
[2022-02-24] MEDS ORDERED: Ketorolac Tromethamine 30 MG/ML VIAL ONE (12:04)
[2022-02-24] MEDS: Sodium Chloride 0.9% 1,000 ML IV SCH (14:31)
[2022-02-24] MEDS ORDERED: FLU VACC QS2022-23(65YR UP)/PF 240 MCG/0.7 ML SYRINGE IM ONE (15:15)
[2022-02-24] MEDS: CEFAZOLIN 2 GM in Sodium Chloride 0.9% 100 ML IVPB SCH (17:39)
[2022-02-24] MEDS ORDERED: Non-Formulary Item 1 EACH (Buspirone Hcl [Buspirone Hcl] 15 MG Tablet) PO SCH (21:00)
[2022-02-24] MEDS ORDERED: Atorvastatin Calcium 40 MG TAB PO SCH (21:00)
[2022-02-24] MEDS: busPIRone HCl 5 MG TAB PO SCH (21:33)
[2022-02-25] MEDS: CEFAZOLIN 2 GM in Sodium Chloride 0.9% 100 ML IVPB SCH (01:36)
[2022-02-25] MEDS: Sodium Chloride 0.9% 1,000 ML IV SCH (01:36)
[2022-02-25] MEDS ORDERED: Valsartan 80 MG TAB PO SCH (09:00)
[2022-02-25] MEDS ORDERED: NIFEdipine XL 30 MG TAB PO SCH (09:00)
[2022-02-25] MEDS ORDERED: Non-Formulary Item 1 EACH (Valsartan [Valsartan] 320 MG Tablet) PO SCH (09:00)
[2022-02-25] MEDS ORDERED: Non-Formulary Item 1 EACH (Multivitamin [Multivitamins] 1 CAP Capsule) PO SCH (09:00)
[2022-02-25] MEDS ORDERED: Multivit, Therapeutic 1 TAB PO SCH (09:00)
[2022-02-25] MEDS: busPIRone HCl 5 MG TAB PO SCH (09:52)
[2022-02-25 11:57] VITALS: BP 139/69; TEMP 97.6
== END 2022-02-25 13:45 | disposition home or self-care (01) ==
LOC: SDC 07:01 → SJJU 13:24
PROVIDERS: ADMIT Orthopaedic Surgery; ATTEND Orthopaedic Surgery
PROC: 0RRJ00Z Replacement of Right Shoulder Joint with Reverse Ball and Socket Synthetic Substitute, Open Approach (ICD-10-PCS; principal; 2022-02-24)
DX: M75.101 Unspecified rotator cuff tear or rupture of right shoulder, not specified as traumatic (principal); U07.1 COVID-19; E78.00 Pure hypercholesterolemia, unspecified; I10 Essential (primary) hypertension; M19.90 Unspecified osteoarthritis, unspecified site; G89.29 Other chronic pain; E11.9 Type 2 diabetes mellitus without complications; M81.0 Age-related osteoporosis without current pathological fracture; Z23 Encounter for immunization; Z86.718 Personal history of other venous thrombosis and embolism; Z79.01 Long term (current) use of anticoagulants; Z79.83 Long term (current) use of bisphosphonates; Z79.899 Other long term (current) drug therapy; Z88.5 Allergy status to narcotic agent
CPT/HCPCS: 23472; 90662; 93005; 97110 ×2; A4306; C1713 ×4; C1776 ×4; G0008; J3010; U0002; 90471; 93010; J1885; J2370; J2405; J2550; J2704; J2795; J3370; J3490; J7050

== ENCOUNTER 2023-06-08 10:14 | Outpatient (CLI) | payer MEDICARE | END 2023-06-08 10:15 | disposition home or self-care (01) | LOC: ULT 10:14 | PROVIDERS: ATTEND Family Medicine | DX: M79.662 Pain in left lower leg (principal); I82.412 Acute embolism and thrombosis of left femoral vein; M25.462 Effusion, left knee; R60.9 Edema, unspecified | CPT/HCPCS: 76999 ==

== ENCOUNTER 2023-11-02 16:24 | Emergency (ER) | payer MEDICARE ==
[2023-11-02] MEDS ORDERED: Ketorolac Tromethamine 30 MG (1 mL) VIAL ONE (17:43)
[2023-11-02] MEDS ORDERED: tiZANidine HCl 4 MG TAB ONE (17:43)
[2023-11-02] MEDS ORDERED: Lidocaine 4% Patch TD SCH (18:00)
[2023-11-02 18:22] LABS: Bacteria/HPF None Seen HPF (None Seen); Bilirubin Negative (Negative); Blood, Urine Negative (Negative); CAUTI Indications for Culture Fever or rigors; Clarity Clear (Clear); Glucose, Urine (Dipstick) Normal (Negative); Ketone, Urine Trace mg/dL (Negative); Leukocyte Negative Leu/uL (Negative); Nitrite Negative (Negative); Protein, Urine (Dipstick) Negative (Neg-Trace); RBC/HPF 0-3 HPF (0-3); Specific Gravity, Urine 1.018 (1.002-1.036); Squamous Epithelial 0-3 HPF (0-3); Urobilinogen Normal mg/dL (Less than 2); WBC/HPF 0-3 HPF (0-3); pH, Urine 5.5 (5.0-9.0)
[2023-11-02 18:32] LABS: Urine Culture Reflex No No
[2023-11-03] MEDS ORDERED: Transdermal Patch Removal TOP SCH (06:00)
== END 2023-11-02 20:59 | disposition home or self-care (01) ==
LOC: ERS 16:24
DX: M54.42 Lumbago with sciatica, left side (principal); I10 Essential (primary) hypertension; E11.43 Type 2 diabetes mellitus with diabetic autonomic (poly)neuropathy; K31.84 Gastroparesis; E78.00 Pure hypercholesterolemia, unspecified; R60.0 Localized edema; Z79.01 Long term (current) use of anticoagulants; Z79.899 Other long term (current) drug therapy
CPT/HCPCS: 81001; 93971; 96372; 99284; J1885